=== PATIENT | male | born 1985 | race Caucasian/White ===

== ENCOUNTER → 2024-09-01 07:38 | Outpatient (CLI) | payer BC, SELFPAY ==
[2024-09-01 08:32] LABS: COVID-19 CEPHEID 4-PLEX PCR POSITIVE (Negative); Influenza A - CEPHEID Flu A NEGATIVE (NEGATIVE); Influenza B - CEPHEID Flu B NEGATIVE (NEGATIVE); Respiratory Syncytial Virus Negative (Negative)
== END ==
PROVIDERS: Visit Provider Student in an Organized Health Care Education/Training Program
DX: R05.1 Acute cough (principal)
CPT/HCPCS: 0241U